=== PATIENT | male | born 1955 | race Caucasian/White ===

== ENCOUNTER → 2016-08-02 | Outpatient (CLI) | payer OTHER | LOC: PREOP 05:52 | PROVIDERS: ATTEND Surgery | DX: Z01.818 Encounter for other preprocedural examination (principal); Z12.11 Encounter for screening for malignant neoplasm of colon ==

== ENCOUNTER 2016-08-15 05:58 | Outpatient (CLI) | payer OTHER ==
[~2016-08-15] VITALS: Ht 170.2 cm; Wt 81.2 kg
[2016-08-15] MEDS ORDERED: METF1000 PO (13:37)
[2016-08-15] MEDS ORDERED: CHOL500049 PO (13:37)
== END 2016-08-15 13:43 ==
LOC: PREOP 05:58
PROVIDERS: ATTEND Surgery
DX: Z01.818 Encounter for other preprocedural examination (principal); Z12.11 Encounter for screening for malignant neoplasm of colon

== ENCOUNTER 2016-12-04 21:48 | Emergency (ER) | payer OTHER ==
[~2016-12-04] VITALS: Ht 170.2 cm; Wt 79.4 kg
[~2016-12-04 21:48] MED LIST: CHOL500049 PO; METF1000 PO
--- NOTE | 2016-12-04 22:24 | ED Head Injury ---
General Chief Complaint: Trauma-Non Activation Stated Complaint: PT FELL AND HIT HEAD Source: patient Exam Limitations: no limitations History of Present Illness Time seen by provider: 22:23 Initial Comments To ER with reports of a head injury. Patient was setting up for a banquet when he slipped on a blueberry and fell striking the back left side of his head. He did briefly lose consciousness for about 30-45 seconds. He does recall all events. He has no nausea dizziness currently. He does report some mild right- sided neck pain with movement. No paresthesias. Some mild right knee pain. He is ambulatory. He is not on any blood thinners. Occurred: just prior to arrival Loss of Consciousness: brief (seconds) Associated Systoms: Headaches Allergies and Home Medications Allergies Coded Allergies: No Known Drug Allergies (Unverified , 08/15/16) Home Medications Cholecalciferol (Vitamin D3) 50,000 Unit Capsule, 50,000 UNIT PO WEEK, (Reported ) Metformin HCl 1,000 Mg Tablet, 1,000 MG PO BID, (Reported) Constitutional: see HPI Eyes: No Symptoms Reported Ears, Nose, Mouth, Throat: no symptoms reported Respiratory: no symptoms reported Cardiovascular: no symptoms reported Genitourinary: no symptoms reported Musculoskeletal: no symptoms reported Skin: no symptoms reported Psychiatric/Neurological: See HPI, Headache Endocrine: No Symptoms Reported Past Tvbkgoy-Pgsmsi-Zkhriy Hx Patient Social History Alcohol Use: Denies Use Recreational Drug Use: No Smoking Status: Never a Smoker 2nd Hand Smoke Exposure: Yes Recent Foreign Travel: No Contact w/Someone Who Travel: No Recent Hopitalizations: No Physical Abuse: No Sexual Abuse: No Seasonal Allergies Seasonal Allergies: Yes Surgeries History of Surgeries: Yes (gastric bypass) Surgeries: Orthopedic Respiratory History of Respiratory Disorde: No Cardiovascular History of Cardiac Disorders: No Neurological History of Neurological Disord: No Genitourinary History of Genitourinary Disor: No Gastrointestinal History of Gastrointestinal Di: No Musculoskeletal History of Musculoskeletal Dis: No Endocrine History of Endocrine Disorders: Yes Endocrine Disorders: Diabetes, Non-Insulin dep HEENT History of HEENT Disorders: No Cancer History of Cancer: No Psychosocial History of Psychiatric Problem: No Suicide Risk Score: 0 Integumentary History of Skin or Integumenta: No Blood Transfusions History of Blood Disorders: No Physical Exam Vital Signs Vital Sign - Last 12Hours 12/04/16 22:00 Temp 97.0 Pulse 53 Resp 20 B/P (MAP) 187/98 Pulse Ox 97 O2 Delivery Room Air Capillary Refill : General Appearance: WD/WN, no apparent distress HEENT: PERRL/EOMI, normal ENT inspection, TMs normal, pharynx normal, other ( there is no palpable depressed skull fracture.) Neck: non-tender, full range of motion, tender lateral, No tender midline Respiratory: lungs clear, normal breath sounds, no respiratory distress, no accessory muscle use Gastrointestinal: normal bowel sounds, non tender, soft Extremities: normal range of motion, non-tender Psychiatric: alert, oriented x 3 Crainal Nerves: normal hearing, PERRL Skin: normal color, warm/dry [place] Coma Score Best Eye Response: (4) Open Spontaneously Best Verbal Response: (5) Oriented Best Motor Response: (6) Obeys Commands Emigdio Total: 15 Progress/Results/Core Measures Results/Orders My Orders Orders - YUMIKO WELCH APRN Ct Head/Cervical Spine Wo (12/04/16 22:22) Vital Signs/I&O Vital Sign - Last 12Hours 12/04/16 22:00 Temp 97.0 Pulse 53 Resp 20 B/P (MAP) 187/98 Pulse Ox 97 O2 Delivery Room Air Departure Impression Impression: Primary Impression: Minor head injury with loss of consciousness Disposition: 01 HOME, SELF-CARE Condition: Stable Departure-Patient Inst. Decision time for Depature: 22:55 Referrals: NO,LOCAL PHYSICIAN (PCP/Family) Primary Care Physician Patient Instructions: Minor Head Injury (DC) Add. Discharge Instructions: 1. Tylenol and Motrin for any headache 2. Return to ER for any concerns 3. Follow-up with occupational health All discharge instructions reviewed with patient and/or family. Voiced understanding. YUMIKO WELCH APRN Dec 04, 2016 22:24
[2016-12-05 00:21] VITALS: BP 187/98
--- NOTE | 2016-12-05 06:43 | Diagnostic Imaging Report ---
PROCEDURE: CT head and CT cervical spine without contrast. TECHNIQUE: Multiple contiguous axial images were obtained through the brain and cervical spine without the use of intravenous contrast. Sagittal and coronal reformations through the cervical spine were then performed. INDICATION: Fall with head and neck injury. CT HEAD: Multiple contiguous axial CT images of the head were obtained. FINDINGS: Ventricles and sulci are within normal limits for size. There is no intracranial hemorrhage identified. There is no abnormal mass effect or shift of midline structures. IMPRESSION: Unremarkable CT of the head. CT cervical spine: FINDINGS: There is straightening of normal cervical lordosis. There is diffuse disc space narrowing and endplate spurring, however, no acute fracture or malalignment is identified. There is no evidence of paraspinous hematoma. There is an approximately 1 cm low-density nodule in the left lobe of thyroid gland. IMPRESSION: Diffuse cervical spondylosis. Straightening of cervical lordosis may be secondary to muscle spasm or positioning. Otherwise, no acute abnormality is identified. Followup ultrasonography of thyroid gland may be of use for evaluation of low density nodule at the left lobe. Dictated by: Dictated on workstation # [id number]
== END 2016-12-05 00:21 | disposition home or self-care (01) ==
LOC: EDUNIT# 21:48 → ER 21:53
DX: Z79.84 Long term (current) use of oral hypoglycemic drugs; W01.10XA Fall on same level from slipping, tripping and stumbling with subsequent striking against unspecified object, initial encounter; Z77.22 Contact with and (suspected) exposure to environmental tobacco smoke (acute) (chronic); S06.9X1A Unspecified intracranial injury with loss of consciousness of 30 minutes or less, initial encounter; E11.9 Type 2 diabetes mellitus without complications
CPT/HCPCS: 70450; 72125; 99282